=== PATIENT | male | born 1995 ===

== ENCOUNTER 2025-01-07 16:47 | Emergency (ER) | payer BC, SELFPAY ==
[2025-01-07 16:54] VITALS: BP 146/88
[2025-01-07 17:17] LABS: % Basophils 0.4 % (0-2); % Eosinophils 0.6 % (0-6); % Immature Granulocytes 0.4 % (0-0.5); % Lymphocytes 30.7 % (20.5-51.1); % Monocytes 5.5 % (1.7-9.3); % Neutrophils 62.4 % (42.2-75.2); Absolute Eosinophils 0.1 10^3/uL (0-0.7); Absolute Monocytes 0.5 10^3/uL (0.1-0.6); Absolute Neutrophils 6.1 10^3/uL (1.4-6.5); Hematocrit 42.1 % (39.0-52.0); Hemoglobin 14.7 g/dL (13.0-18.0); Mean Corp Hgb Conc. 34.9 g/dL (33.0-37.0); Mean Corpuscular Hgb 28.8 pg (27.0-31.0); Mean Corpuscular Volume 82.5 fL (80.0-94.0); Mean Platelet Volume 10.1 fL (7.4-10.4); Nucleated Red Blood Cells % 0 % (-); Platelet Count 267 10^3/uL (130-400); Red Cell Dist. Width 12.8 % (11.5-14.5); White Blood Cell Count 9.7 10^3/uL (4.8-10.8)
[2025-01-07 17:30] LABS: ALT (SGPT) 29 U/L (0-50); AST (SGOT) 28 U/L (17-59); Albumin 4.8 g/dl (3.5-5.0); Alkaline Phosphatase 66 U/L (38-126); Blood Urea Nitrogen 19 mg/dl (9-20); Carbon Dioxide 28 mmol/L (22-30); Chloride 104 mmol/L (98-107); Glucose 94 mg/dl (70-99); Potassium 3.9 mmol/L (3.5-5.1); Sodium 141 mmol/L (135-145); Total Bilirubin 0.7 mg/dl (0.2-1.3); Total Protein 7.9 g/dl (6.3-8.2); eGFR > 60.00
[2025-01-07 17:43] LABS: Troponin I < 0.012 ng/ml
[2025-01-07 19:57] VITALS: BMI 24.9
--- NOTE | 2025-01-07 19:59 | EDRN ---
Pt has had sharp pain R side of his chest 'in the middle of my pec area and sometimes on the side, underneath.' Pt adds when he raises his arms, he gets sharp pain. Pt also notes notes. Symptoms have been happening daily x 1.5-2 weeks. Pt came
to from work to ED because pain took his breath away. Pt has not taken anything for pain in past 2 weeks. Pt denies abd pain, n/v, fever/chills/cough, urinary symptoms, dizziness, weakness. 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
[2025-01-07 20:05] VITALS: BP 130/80
--- NOTE | 2025-01-07 20:29 | ED.GENMED ---
History of Present Illness
General
Chief Complaint: Chest Pain
Source: patient
Exam Limitations: none
Time Seen by Provider: 01/07/25 19:48
Nursing documentation reviewed up to this point in time: agreed with
History of Present Illness
History of Present Illness:
29 y/o M with h/o GERD, PTSD
anxiety
vape marijuana
here with R sided chest discomfort, semi constant mild dull pain with pleuritic component
he cannot think of any recent injury
no fever/cough/heomptysis, recent long travel, lightheadendess, SOB
he has not tried anyting for pain
pt says that 1.5 weeks ago when he noticed this discomfort it was onset after a 'stressful event' but he says the stressor is now gone and he iss still feeling it
he had ti more significantly at work today around 345 pm
pt says he still feels it now, mimimially 3/10 and it is 5/10 with deep breathing
no recent injury, lifitng/trauma
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
no fhx of CAD
no recent PE rf
Past History
Past History
ED Past Medical History: None
ED Past Surgical History: None
Social History
Tobacco: Vaping (marijuana)
Alcohol: None
Drug: None
Personal:
Living: with family
Employment: Employed
Family History
Family History: Negative CAD or Sudden
Review of Systems
Review of Systems
Allergies reviewed?: Yes
All Other Systems: Not applicable
Phy Exam
Physical Exam
Physical Exam:
GENERAL: Alert , in no apparent distress
EYE: pupils equal and reactive
NECK: Supple
ENT: o/p clr, mmm.
CARDIAC: Regular rate and rhythm .
LUNGS: Clear breath sounds bilaterally, no acute respiratory distress, no wheezes/rales/rhonchi; taking deep breaths
chest wall: tattoo R Upper chest, no erythema, old, nontender no deformity
ABDOMEN: Soft, without focal tenderness, no r/g, no cvat, normal bowel sounds
NEUROLOGICAL: Alert and oriented, no focal neuro deficits
SKIN: Warm and dry, skin intact.
MUSCULOSKELETAL: No edema, well perfused. neg trey's sign
PSYCH: Normal and appropriate interaction.
Scores
Heart Score for Chest Pain Patients
STEMI patient?: No
History: Slightly or Non-Suspicious
ECG: Normal
Age: </= 45 years
Risk Factors: No Risk Factors
Troponin: </= Normal Limit
Heart Score for Chest Pain Patients: 0
Heart Score Risk: 2.5% MACE over next 6 weeks
Course
Orders/Labs/Results
Orders:
Orders
01/07/25 16:49
Electrocardiogram (*1) Urgent
Reason for Study: Chest Pain
EKG- Treatment ONCE
01/07/25 17:01
CXR2 [CR Chest - 2 Views ] Urgent
Comment:
Reason For Exam: chest pain
01/07/25 17:06
CMP [Comprehensive Metabolic Panel] Urgent
Complete Blood Count/With Diff Urgent
Troponin I Routine
01/07/25 20:28
Electrocardiogram (*1) Urgent
Reason for Study: Chest Pain
EKG- Treatment ONCE
01/07/25 20:45
D-Dimer Urgent
Troponin I Urgent
01/07/25 21:21
Ibuprofen [Motrin] 600 mg PO NOW STA
01/07/25 17:06
01/07/25 17:06
Vital Signs
Initial and Last Documented VS:
Initial Vital Signs
Temp Pulse Resp BP Pulse Ox
36.9 C 64 18 146/88 98
01/07/25 16:54 01/07/25 16:54 01/07/25 16:54 01/07/25 16:54 01/07/25 16:54
Last Documented Vital Signs
Temp Pulse Resp BP Pulse Ox
36.9 C 47 14 127/72 99
01/07/25 16:54 01/07/25 21:00 01/07/25 21:00 01/07/25 21:00 01/07/25 21:00
MDM/Problems Addressed
Differential Diagnosis Includes:
chest wall pain, PE, ACS, ptx
MDM/Problems Addressed:
29 y/o M
vapes marijuana
ptsd
here with R chest pain x 1.5 weeks mild constant pain he is aware of and then occaisonal sharp pains lasting a second or two
worse with deep breathing but without dyspnea
no cough
no cold yspmtoms
wlel appaering, comfortable
under recent stress
heart score 0
sinus isai ekg nonischemic 50s
labs unremarkable including trop x 2, unchagne dekg x 2 and neg d dimer
cxr indep reviewed, neg
suspect anxiety vs MSk
*Critical Care Note
Total Time (30-74mins, 75-104mins- exclusive of procedures): Not Applicable
ED Attending Note
-
Portions of this chart may have been created with voice recognition software.� Occasional wrong word or��sound alike� substitutions may have occurred due to the inherent limitations of voice recognition software.
Discharge Plan
Departure
Patient Disposition: Home (Routine Discharge)
Date of Disposition: 01/07/25
Time of Disposition: 21:18
Patient with high blood pressure during this ER visit?: No
Condition: Fair
Covid-19: Not Applicable
Discharge Problem:
Chest pain
Instructions: Chest Pain PCP Follow Up
Prescriptions:
No Action
No Current Medications
0
Referrals:
[facility] - Follow up in 5-7 days
Activity Restrictions/Additional Instructions:
WE ARE NOT SURE THE CAUSE OF YOUR PAIN BUT IT COULD BE FROM STRESS OR FROM PULLED MUSCLES
TRY IBUPROFEN 600 MG EVERY 8HOURS NEEDED FOR 3-5 DAY STO SEE IF THIS HELPS
FOLLOW UP WITH YOUR FAMILY DOCTOR THIS WEEK
IF YOU DO NOT HAVE A FAMILY DOCTOR [facility]
RETURN FOR: WORSENING PAIN, PASSING OUT, RASH, FEVER, SHORTNESS OF BREATH
Interventions
Interventions:
*Risk Screen - Suicide Last Done: 01/07/25 16:54
*General Assessment Last Done: 01/07/25 19:57
*Neglect/Abuse Screening Last Done: 01/07/25 16:54
*ED- Fall Risk Assessment Last Done: 01/07/25 19:57
*ED COVID-19 Vaccine History Last Done: 01/07/25 16:54
ED- Cardiac Assessment Last Done: 01/07/25 20:12
Discharge Date and Time
Print Language: ZAMBIAN
[2025-01-07 21:00] VITALS: BP 127/72
[2025-01-07 21:08] LABS: D-Dimer < 0.27 ug/mlFEU (0.00-0.50)
[2025-01-07 21:14] LABS: Troponin I < 0.012 ng/ml
[2025-01-07] MEDS: MOTRIN 600 MG PO (21:34)
== END 2025-01-07 21:43 | disposition home or self-care (01) ==
LOC: EMR 16:47
PROVIDERS: Physician Assistant; Student in an Organized Health Care Education/Training Program; EMERGENCY PHYSICIAN Emergency Medicine; FAMILY PHYSICIAN Family Medicine
DX: R07.89 Other chest pain (principal); F17.290 Nicotine dependence, other tobacco product, uncomplicated
CPT/HCPCS: 99285; 71046; 80053; 84484; 85025; 85379; 93005